=== PATIENT | female | born 1995 | race Caucasian/White ===

== ENCOUNTER 2019-04-17 10:22 | Outpatient (CLI) | payer OTHER ==
--- NOTE | 2019-04-17 15:21 | Ultrasound Report ---
Reason: BREAST LUMP Procedure Date: 04/17/2019 Accession Number: [id number] / [id number] Procedure: US - Breast Unilateral Limited CPT Code: Final Report FULL RESULT: EXAM: Breast Unilateral Limited DATE: 04/17/2019 11:30 AM CLINICAL HISTORY: Six-month follow-up of breast lump. COMPARISON: Ultrasound dated 09/26/2018. TECHNIQUE: Targeted ultrasound was performed of the left breast in the area of clinical concern at 10 o'clock and 4 cm distance from the nipple. Color Doppler was employed as appropriate. FINDINGS: The previously identified hypoechoic wider than tall well circumscribed gently lobulated nodule is again seen and measures up to 1.3 x 1.1 x 0.7 cm on today's examination which is not enlarged compared to the submitted images from prior exam. Internal vascularity is demonstrated by limited color Doppler. There is no convincing increased through transmission. This probably represents a small fibroadenoma. IMPRESSION: Probable benign findings RECOMMENDATION: Recommend diagnostic ultrasound of the right breast in 6 months. BIRADS CATEGORY 3 RADIA
== END 2019-04-17 10:23 | disposition home or self-care (01) ==
LOC: DI 10:22
PROVIDERS: ATTEND Family Medicine
DX: N63.20 Unspecified lump in the left breast, unspecified quadrant (principal)
CPT/HCPCS: 76642